=== PATIENT | male | born 1985 | race Caucasian/White ===

== ENCOUNTER 2022-06-08 19:54 | Emergency (ER) | payer OTHER, SELFPAY ==
--- NOTE | ~2022-06-08 | XR_ITS ---
EXAMINATION: XR HAND, LEFT CLINICAL INFORMATION: Pain. COMPARISON: None TECHNIQUE: PA, lateral, and oblique views of the left hand. FINDINGS: Displaced dorsal avulsion fracture of the fifth distal phalangeal base with subluxation of the distal phalanx with respect to the middle phalanx. Surrounding soft tissue swelling. No unexpected radiopaque foreign bodies. No other fractures or malalignment. XR/XR hand LT min 3V IMPRESSION: Displaced dorsal avulsion fracture at the base of the fifth distal phalanx.
[2022-06-08 20:11] VITALS: BP 130/75; PULSE 58; RESP 16; TEMP 36.8; O2SAT 97; BMI 22.4
--- NOTE | 2022-06-08 20:52 | ED.EXTPRO ---
HPI - Extremity Problem General Chief complaint: Extremity Injury, Upper Stated complaint: left pinky finger inj Time Seen by Provider: 06/08/22 20:51 Source: patient Mode of arrival: ambulatory Limitations: no limitations History of Present Illness HPI Narrative: 36-year-old male presents with a 2-week-old injury to his left pinky finger. States that he hit a wall, and had some finger pain, placed a finger in a splint. Now there is some swelling is difficult for him to move his finger. MD Complaint: extremity pain and joint swelling Onset (ago): week(s) (2) Pain Consistency: constant Location: left and upper extremity Severity scale (1-10): 8 Quality: aching and constant Radiation: none Relieving factors: nothing Exacerbating factors: range of motion and palpation Associated symptoms: denies other symptoms Related Data Previous Rx's Medication Instructions Recorded amoxicillin 875 mg-potassium 1 tab PO Q12H 10 days #20 tabs 06/08/22 clavulanate 125 mg tablet Allergies Allergy/AdvReac Type Severity Reaction Status Date / Time iodine [IODINE] Allergy Unknown SWELLING Verified 06/08/22 20:10 Review of Systems Review of Systems: Constitutional: No Fever, No Chills Musculoskeletal: positive left 5th finger pain and Swelling Skin: No Skin lacerations, No rash Neuro: No Weakness Yes all other systems are reviewed and are negative REPLACED BY [facility] Past Medical History Attestation statement: The following information was validated with the patient. Source: old records reviewed Social History Social History Advance Directives: No Advance Directives Information Provided: No Physical Exam Vital Signs: Vital Signs: Last Vital Signs Temp 98.3 F 06/08/22 20:11 Pulse 58 06/08/22 20:11 Resp 16 06/08/22 20:11 BP 130/75 06/08/22 20:11 Pulse Ox 97 06/08/22 20:11 O2 Del Method 06/08/22 20:11 BMI result Body Mass Index 22.4 Appearance: Alert. Oriented X3. No acute distress. Eyes: Pupils equal, round and reactive to light. CVS: Normal heart rate and rhythm. Respiratory: No respiratory distress. Skin: Skin warm and dry erythematous to the tip of the left 5th finger from D IP to tip. Extremities: Malformation noted at the PIP of the 5th finger. Neuro: Cranial nerves 2-12 intact. Course Course Course Narrative: 36-year-old male presents with malformation and pain to the left 5th finger. Had an injury 2 weeks ago, striking the finger up against a wall. He placed a finger in a splint, and stated that it felt better for short period time however noted that the joint at distal and became swollen and is now very tender to touch and red. X-rays indicate displaced dorsal avulsion fracture at the base of the 5th distal phalanx. Patient will follow-up with hand surgery, will give Augmentin, and pain management with supportive measures of Tylenol and Motrin Patient verbalized understanding of and agrees to plan of care discharge home. Verbalized understanding of signs and symptoms indicating need for emergent intervention Medications Administered Discontinued Medications Generic Name Dose Route Start Last Admin Trade Name Freq PRN Reason Stop Dose Admin Amoxicillin/Clavulanate Potassium 875 mg 06/08/22 21:00 06/08/22 21:18 Amoxicillin/Potassium Clav 875 Mg Tablet PO 06/08/22 21:01 875 mg ONCE ONE Administration Medical Decision Making Differential Diagnosis Differential Diagnoses: The differential diagnosis associated with the presentation includes Fracture, cellulitis Independent Interpretation I performed an independent interpretation of an: Plain X-Ray Radiology Impression Discussion of test interpretation with radiology: I have reviewed the radiologist's reading. Radiologist Impression: EXAMINATION: XR HAND, LEFT CLINICAL INFORMATION: Pain.? COMPARISON: None? TECHNIQUE: PA, lateral, and oblique views of the left hand. FINDINGS: Displaced dorsal avulsion fracture of the fifth distal phalangeal base with subluxation of the distal phalanx with respect to the middle phalanx. Surrounding soft tissue swelling. No unexpected radiopaque foreign bodies. No other fractures or malalignment.? XR/XR hand LT min 3V IMPRESSION: Displaced dorsal avulsion fracture at the base of the fifth distal phalanx. ? External Record Review No prior records for this patient at this facility Prescription Management I considered prescription management with: Antibiotic Discharge Plan Discharge Clinical Impression: Finger fracture, Cellulitis Patient Disposition: Home, Self-Care Instructions: Finger Fracture (ED), Cellulitis (ED) Additional Instructions: You were evaluated for finger fracture. This fracture appears to be infected. Please take Augmentin 875 mg twice a day for the next 10 days Continue to keep the splint in place. You must follow up within an orthopedic hand surgeon. I have referred you to Dr. Michela Lee. Please call and request an appointment for evaluation. This injury may require surgery. Alternate Tylenol 650 mg every 6 hours and Motrin 600 mg every 6 hours as needed for pain and fever management. Consider taking these medications 3 hours apart so you have pain and fever management every 3 hours. Write down what time you take these medications to prevent accidental overdose. Motrin is the same medication as Advil and ibuprofen. Tylenol is the same medication as acetaminophen. Thank you for choosing this emergency department for evaluation. Please follow-up with primary care physician as needed. Return to the emergency department for any new, concerning, or worsening symptoms. Prescriptions: New amoxicillin-pot clavulanate 875-125 mg tablet 1 tab PO Q12H 10 Days Qty: 20 0RF Referrals: Michela Lee MD [Physician] - 2 days (Finger fracture with infection) Interventions: ED Discharge Assessment Last Done: 06/08/22 21:18 Discharge Date/Time: 06/08/22 21:19
[2022-06-08] MEDS: Amoxicillin/Potassium Clav 875 MG TABLET PO (21:18)
== END 2022-06-08 21:19 | disposition home or self-care (01) ==
PROVIDERS: Emergency Provider Emergency Medicine Emergency Medical Services
DX: S62.637A Displaced fracture of distal phalanx of left little finger, initial encounter for closed fracture (principal); W22.09XA Striking against other stationary object, initial encounter; L03.012 Cellulitis of left finger; Y93.9 Activity, unspecified; Y92.9 Unspecified place or not applicable; Y99.9 Unspecified external cause status
CPT/HCPCS: 73130; 99282; 99283

== ENCOUNTER → 2022-06-11 14:30 | Outpatient (BNVA) | payer OTHER, SELFPAY | PROVIDERS: Visit Provider Orthopaedic Surgery | DX: Z13.89 Encounter for screening for other disorder (principal) ==

== ENCOUNTER 2022-06-13 07:06 | Day surgery (SDC) | payer OTHER, SELFPAY ==
--- NOTE | 2022-06-12 11:55 | P.CONAN_ITS ---
Documented by User: Marissa Naik NP 06/12/22 11:55 HPI - Anesthesia Eval Consult details Narrative: 36yo M for Left Small Finger P3 Fx ORIF vs CRPP, PMFSH Active Problems Active Problems: All Active Problems (Updated 06/11/22 @ 15:34 by Ronald Lama) Fracture of distal phalanx of left little finger (Acute) Social History Social History (Updated 06/11/22 @ 15:00 by RANDALL Spivey) Patient Tobacco Use Status: Never used Tobacco Second Hand Smoke Exposure: No Use of substances other than those prescribed or required for medical reasons: No Are you DNR?: No Advance Directives: No Advance Directives Information Provided: Yes Advance Directives on File: No 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 Allergies Allergy/AdvReac Type Severity Reaction Status Date / Time iodine [IODINE] Allergy Unknown SWELLING Verified 06/11/22 14:58 Exam Exam Date and Time: June 12, 2022 115 Assessment and Plan Assessment Anesthesia Assessment: Chart Reviewed Documented by User: Fernandez Jones MD 06/13/22 10:17 [facility] Family History Family history of problems with anesthesia: No Surgical History History of Problems with Anesthesia: No Social History Social History (Updated 06/11/22 @ 15:00 by RANDALL Spivey) Patient Tobacco Use Status: Never used Tobacco Second Hand Smoke Exposure: No Use of substances other than those prescribed or required for medical reasons: No Are you DNR?: No Advance Directives: No Advance Directives Information Provided: Yes Advance Directives on File: No 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 Allergies Allergy/AdvReac Type Severity Reaction Status Date / Time iodine [IODINE] Allergy Unknown SWELLING Verified 06/11/22 14:58 Exam Airway Mallampati Class: II TM Dist: >3cm Neck ROM: Full Heart: rrr Lungs: cta Assessment and Plan Final Anesthetic Review Family History of Problems with Anesthesia: No History of Problems with Anesthesia: No NPO: Yes ASA Class: II Final Preanesthetic Review: No Changes in Pt Med Stat, Meds/Allgs Chart Reviewed, Consent Obtained/Reviewed and Anes Risks/Benef Reviewed Patient Risk: Low Procedure Risk: Low Anesthetic Plan Anesthetic Plan: GA and Agree w/ Assess. and Plan Disposition: Standard PACU
[2022-06-13] VITALS (8 sets, daily range): BP systolic 107–126; BP diastolic 53–86; PULSE 45–66; RESP 16–17; TEMP 36.6; O2SAT 97–100; BMI 22.4
--- NOTE | ~2022-06-13 | FL_ITS ---
EXAMINATION: FL FLUOROSCOPY WITH IMAGES CLINICAL INFORMATION: Small finger ORIF vs CRPP. COMPARISON: Left hand 06/08/2022. TECHNIQUE: Fluoroscopy Supervised By: Jesus Abernathy. FLUOROSCOPY TIME: 32.88 seconds. DLP: Cumulative Dose 0.6850 mGy-cm DAP: 0.0414 Gy-cm2 FLUOROSCOPIC IMAGES: 5. FINDINGS: There are 5 digital images revealing needle traversing the DIP joint fifth digit with an avulsed fracture at the dorsal base of fifth digital phalanx. FL/FL guidance in OR IMPRESSION: Status post fused DIP joint fifth digit with pins. Again visualized is avulsed bone fragment base of dorsal distal phalanx of fifth digit.
--- NOTE | 2022-06-13 07:51 | P.OP_ITS ---
Operative Note Operative Note Date of Service: 06/13/22 Narrative: Operative Note Narrative: Preop diagnosis: 1. Left small finger distal phalanx base fracture, intra-articular Postop diagnosis: Same Procedure: 1. Left small finger distal phalanx base fracture closed reduction percutaneous pinning 2. Ulnar nerve block Surgeon: Michela Lee MD Anesthesia: General Anesthesia Findings: finger fracture Implants: 0.045 K-wires times 1, 0.035 K-wire x1 Tourniquet time: None EBL: Minimal Specimen: None Drains: None Complications: None Disposition: Brought to the recovery room in stable condition Plan: Follow-up in 10-14 days for a wound check, postop radiographs and for for placement in either a short-arm finger spica cast, or perhaps a finger splint if the patient believes he can tolerate pin site care. Anticipate removal of the 0.045 K-wire at about 5 weeks. The 0.035 K-wire can be removed sooner if loosening. Educate the patient that full fracture healing anticipated in approximately 8-12 weeks. Indications: The patient is 36 years old with a left small finger intra- articular distal phalanx fracture with volar subluxation of the distal phalanx . The risks and benefits of operative treatment, including but not limited to risk of damage to blood vessels, nerves, tendons, infection, recurrence, delayed or nonunion of fracture, persistent pain or numbness, incomplete resolution of preoperative symptoms, or need for further surgery were discussed with the patient and they wished to proceed with surgery. Procedure: Once consent was obtained patient was brought back to the operating suite and placed in the operating table in a supine position. . Perioperative antibiotics and general anesthesia was administered by the anesthesia team. A tourniquet was applied to the proximal aspect of the left upper extremity and the limb was prepped and draped in a standard surgical fashion. Tourniquet was not inflated during the case. The FluoroScan was used during the case to assist with our fracture reduction and placement of all implants. A closed reduction was performed on the patient's left small finger distal phalanx fracture fracture. I placed a single 0.045 K-wire retrograde through the tip of the distal phalanx. This was advanced retrograde to the fracture site. The distal phalanx was then reduced from its volarly subluxated position and the K-wire was advanced across the D IP joint and down to the base of the middle phalanx. I was very satisfied with the reduction of the D IP joint and the position of the 0.045 K-wire. I then passed a 0.035 K-wire through the tip of the distal phalanx and advanced it slightly obliquely down to the fracture site. I then tried to reduce the dorsal fragment of the base of the distal phalanx so that it to be held by this 0.035 K-wire. However, this was unsuccessful. I then passed a 0.035 K-wire dorsally and used this to advance the dorsal fragment to the base of the distal phalanx. I then secured this K-wire in the distal aspect of the middle phalanx, trapping this bony fragment against the dorsal lip of the distal phalanx to facilitate bony healing. Once satisfied with our closed reduction percutaneous pinning both pins were bent cut short had pin caps applied. The wounds were copiously irrigated with normal saline. An ulnar nerve block was then performed by infiltrating about the ulnar nerve at the wrist with some 0.5% plain ropivacaine for postop pain control. A Sterile dressing and volar splint extending from the tips of the small and ring fingers to the forearm was applied. The patient appears to have tolerated the procedure well and with no complications. All digits were well vascularized at the conclusion of the case.
[2022-06-13] MEDS: Lactated Ringers 1,000 ML 100 ML IVCONT (08:28)
--- NOTE | 2022-06-13 09:32 | MHC.SHP ---
Pre-Procedural Eval Section A Date of Service: 06/13/22 The patient is an INPATIENT: No Changes since office visit: No Cold of Flu in the past 2 weeks, No New Medical Problems, No Changes in Medication and No Patient answered all questions The History & Physical has been completed within 30 days and I have reviewed it.: Yes Section B Chief Complaint: Displaced fracture of distal phalanx of left littl Allergies: Allergies Allergy/AdvReac Type Severity Reaction Status Date / Time iodine [IODINE] Allergy Unknown SWELLING Verified 06/11/22 14:58 Plan I have reviewed the history and physical and performed a pertinent physical examination on my patient. No changes have occurred unless specified. Time Spent With Patient Time: Total time managing care of this patient today ____ minutes.
== END 2022-06-13 13:23 | disposition home or self-care (01) ==
PROVIDERS: Visit Provider Orthopaedic Surgery
PROC: (CPT 26756; principal; 2022-06-13 08:40)
DX: S62.637A Displaced fracture of distal phalanx of left little finger, initial encounter for closed fracture (principal); W22.09XA Striking against other stationary object, initial encounter; Y93.89 Activity, other specified; Y92.9 Unspecified place or not applicable; Y99.8 Other external cause status; Z91.041 Radiographic dye allergy status
CPT/HCPCS: 26756; J0171; J0690; J1100; J1885; J2250; J2405; J2795; J3010

== ENCOUNTER 2022-06-24 12:16 | Outpatient (REF) | payer OTHER, SELFPAY ==
--- NOTE | ~2022-06-24 | XR_ITS ---
EXAMINATION: XR HAND, LEFT CLINICAL INFORMATION: Pain. COMPARISON: Fluoroscopy dated 06/13/2022; radiographs dated 06/08/2022. TECHNIQUE: PA, lateral, and oblique views of the left hand. FINDINGS: Bony alignment and mineralization are normal. 2 orthopedic pins are seen applied to the middle and distal phalanges of the left fifth finger. Bony alignment is well-maintained. No dislocation is seen. There is no soft tissue gas or foreign body. XR/XR hand LT min 3V IMPRESSION: There is well-maintained alignment status-post ORIF of a dorsal avulsion fracture of the base of the fifth distal phalanx. No hardware failure or loosening is seen.
== END 2022-06-24 12:17 | disposition home or self-care (01) ==
LOC: HO.HOSX 12:16
PROVIDERS: Visit Provider Orthopaedic Surgery
DX: Z13.89 Encounter for screening for other disorder (principal)

== ENCOUNTER → 2022-06-26 12:46 | Outpatient (BNVA) | payer OTHER, SELFPAY | PROVIDERS: Visit Provider Orthopaedic Surgery | DX: Z47.89 Encounter for other orthopedic aftercare (principal); M79.642 Pain in left hand; S62.637A Displaced fracture of distal phalanx of left little finger, initial encounter for closed fracture; X58.XXXA Exposure to other specified factors, initial encounter; Y93.9 Activity, unspecified; Y92.89 Other specified places as the place of occurrence of the external cause; Y99.8 Other external cause status | CPT/HCPCS: 73130 ==

== ENCOUNTER 2022-07-16 09:41 | Outpatient (REF) | payer OTHER, SELFPAY | END 2022-07-16 09:42 | disposition home or self-care (01) | LOC: HO.HOSX 09:41 | PROVIDERS: Visit Provider Orthopaedic Surgery | DX: Z13.89 Encounter for screening for other disorder (principal) ==

== ENCOUNTER 2022-07-17 15:13 | Outpatient (REF) | payer OTHER, SELFPAY ==
--- NOTE | ~2022-07-17 | XR_ITS ---
EXAMINATION: XR HAND, LEFT CLINICAL INFORMATION: Pain COMPARISON: Hand radiographs 06/26/2022 TECHNIQUE: Three views of the left hand. FINDINGS: Interval removal 1 percutaneous fixation pin with a residual fixation pin fixating the distal and middle fifth phalanx. A fracture of the dorsal aspect of the base of the fifth distal phalanx appears possibly minimally in degree of displacement with respect to prior. Soft tissue swelling about the fifth digit. Joint spaces are otherwise maintained. XR/XR hand LT min 3V IMPRESSION: Interval removal 1 percutaneous fixation pin with a residual fixation pin fixating the distal and middle fifth phalanx. A fracture of the dorsal aspect of the base of the fifth distal phalanx appears possibly minimally in degree of displacement with respect to prior. Soft tissue swelling about the fifth digit.
== END 2022-07-17 15:14 | disposition home or self-care (01) ==
LOC: HO.HOSX 15:13
PROVIDERS: Visit Provider Orthopaedic Surgery
DX: S62.637D Displaced fracture of distal phalanx of left little finger, subsequent encounter for fracture with routine healing (principal)
CPT/HCPCS: 73130

== ENCOUNTER 2022-07-31 09:10 | Outpatient (REF) | payer OTHER, SELFPAY ==
--- NOTE | ~2022-07-31 | XR_ITS ---
EXAMINATION: XR HAND, LEFT CLINICAL INFORMATION: M79.642 - Pain in left hand. Fracture base fifth finger distal phalanx. Follow-up. COMPARISON: Radiographs left hand 07/17/2022, 06/26/2022, 06/08/2022. TECHNIQUE: PA, lateral, and oblique views of the left hand. FINDINGS: The fracture base fifth finger distal phalanx is reduced with a pin. There is slight displacement and probable rotation of the fracture fragment similar to prior exam. No change in alignment appreciated. The hardware is intact. No dislocation or destructive process. XR/XR hand LT min 3V IMPRESSION: No significant change in alignment from prior exam. Hardware intact.
== END 2022-07-31 09:11 | disposition home or self-care (01) ==
LOC: HO.HOSX 09:10
PROVIDERS: Visit Provider Orthopaedic Surgery
DX: S62.637D Displaced fracture of distal phalanx of left little finger, subsequent encounter for fracture with routine healing (principal); X58.XXXD Exposure to other specified factors, subsequent encounter
CPT/HCPCS: 73130